=== PATIENT | female | born 1965 | race Caucasian/White ===

== ENCOUNTER → 2017-05-05 | Outpatient (CLI) | payer OTHER, MEDICARE ==
[~2017-05-05] MED LIST: 'PARAFON FORTE500 M1 PO; ATARAX25 MG PO; BENADRYL50 MG PO; BENTYL10 MG PO; CLARITIN10 MG PO; DOXYCYCLINE20 MG PO; DOXYCYCLINE50 M2 PO; EFFEXOR XR75 M2 PO; ERYC250 MG PO; ERYTHROMYCIN250 M2 PO; FIORICET 325 MG1 TAB PO; FLOMAX0.4 MG PO; FLONASE 0.05% 121 EA NAS; HYDROCODONE BIT1 T11 PO; LEVAQUIN250 MG PO; MACROBID100 M1 PO; MEDROL DOSEPAK4 MG PO; METICORTEN1 MG PO; MOTRIN800 MG PO; NEURONTIN600 MG PO; PAXIL10 MG PO; PAXIL20 M1 PO; PEPCID20 MG PO; PERCOCET 325 MG1 TA2 PO; POLYMYCIN B/TRI10 ML OP; PREDNISONE10 M1 PO; PREDNISONE10 MG PO; PREDNISONE20 MG PO; PREDNISONE50 MG PO; PROZAC40 MG PO; PYRIDIUM200 M1 PO; PYRIDIUM200 MG PO; Phenergan25 MG PO; ROBAXIN500 MG PO; VICODIN 5/500 505 MG PO; VICODIN 500 MG-1 TAB PO; XANAX0.5 MG PO; XANAX1 MG PO; ZITHROMAX Z PA250 MG PO; ZOFRAN ODT4 MG SL; ZYRTEC10 M2
== END | disposition home or self-care (01) ==
LOC: MAMMO 10:00
DX: Z12.31 Encounter for screening mammogram for malignant neoplasm of breast (principal)

== ENCOUNTER 2018-03-10 21:42 | Emergency (ER) | payer OTHER, MEDICARE ==
[~2018-03-10] VITALS: Ht 172.7 cm; Wt 58.1 kg
[2018-03-10] MEDS ORDERED: ZYRTEC10 MG PO (21:57)
== END 2018-03-10 22:18 | disposition home or self-care (01) ==
LOC: ED 21:42
DX: L23.7 Allergic contact dermatitis due to plants, except food (principal); Z88.0 Allergy status to penicillin; Z88.2 Allergy status to sulfonamides; Z88.1 Allergy status to other antibiotic agents

== ENCOUNTER 2018-09-21 17:32 | Emergency (ER) | payer OTHER, MEDICARE ==
[~2018-09-21] VITALS: Wt 61.2 kg
--- NOTE | ~2018-09-21 | EKG ---
[place], [place] ELECTROCARDIOGRAM REPORT NAME: KALEB GLEASNO UNIT #: [id number] ROOM: DOCTOR: EPIPHANY DRAFT REPORT BIRTHDATE: [birth year] [facility] Test Date: 2018-09-21 Test Time: 19:30:01 Pat Name: KALEB GLEASON Department: ER Room: 14 Gender: F Building Official: : [id number] Requested By: FRANCISCO MANN Order Number: [id number] Reading MD: Latyoa Canales MD Measurements Intervals [place] Rate: 75 P: 35 [place]: 134 QRS: 54 QRSD: 87 T: 46 QT: 410 QTc: 458 Interpretive Statements Sinus rhythm Normal ECG Baseline wander in lead(s) V5 Electronically Signed On 09-22-2018 3:23:47 PST by Latoya Canales MD CM:EKGRPT:ELECTROCARDIOGRAM REPORT [id number] FRANCISCO CANCINO DRAFT REPORT FRANCISCO SWARTZ
[~2018-09-21 17:32] MED LIST changes: +ZYRTEC10 MG PO
[2018-09-21 19:34] LABS: BASO # 0.1 10*3/uL (0.0-0.1); BASO % 0.4 % (0.0-1.0); EOS % 0.1 % (1.0-4.0); HEMATOCRIT 40.7 % (37.0-47.0); HEMOGLOBIN 13.2 g/dl (12.0-16.0); LYMPH # 3.1 10*3/uL (1.3-4.4); LYMPH % 23.4 % (27.0-41.0); MEAN CELL VOLUME 91.9 fl (81.0-99.0); MEAN CORPUSCULAR HGB 29.8 pg (27.0-31.0); MEAN CORPUSCULAR HGB CONC 32.4 g/dl (33.0-37.0); MEAN PLATELET VOLUME 9.4 fl (9.6-12.3); MONO # 0.8 10*3/uL (0.1-1.0); MONO % 5.9 % (3.0-9.0); NEUT # 9.3 10*3/uL (2.3-7.9); NEUT % 69.8 % (47.0-73.0); PLATELET COUNT AUTOMATED 288 10*3/uL (130-400); RED BLOOD COUNT 4.43 10*6/uL (4.10-5.10); RED CELL DISTRI WIDTH 13.2 % (0-14.5); WHITE BLOOD COUNT 13.4 10*3/uL (4.8-10.8)
[2018-09-21 19:51] LABS: ALBUMIN 4.1 gm/dl (3.1-4.5); ALKALINE PHOSPHATASE 55 U/L (45-117); BUN 14 mg/dl (7-24); CHLORIDE 103 mmol/L (98-107); CREATININE 0.75 mg/dL (0.55-1.02); POTASSIUM 3.3 mmol/L (3.5-5.1); SGOT/AST 21 IU/L (3-35); SGPT/ALT 32 U/L (12-78); SODIUM 138 mmol/L (136-145); TOTAL PROTEIN 6.8 gm/dL (6.4-8.2)
[2018-09-21 19:57] LABS: TROPONIN I < 0.015 ng/ml (<0.045)
[2018-09-21] MEDS ORDERED: CEPHALEXIN500 M1 PO (21:56)
== END 2018-09-21 21:33 | disposition home or self-care (01) ==
LOC: ED 17:32
PROVIDERS: Physician Assistant
DX: S42.291A Other displaced fracture of upper end of right humerus, initial encounter for closed fracture (principal); S01.311A Laceration without foreign body of right ear, initial encounter; Z88.0 Allergy status to penicillin; Z88.2 Allergy status to sulfonamides; Z88.1 Allergy status to other antibiotic agents; Z88.8 Allergy status to other drugs, medicaments and biological substances; Z79.2 Long term (current) use of antibiotics; Z79.899 Other long term (current) drug therapy; Z98.890 Other specified postprocedural states; W00.0XXA Fall on same level due to ice and snow, initial encounter; Y93.89 Activity, other specified; Y92.89 Other specified places as the place of occurrence of the external cause; Y99.8 Other external cause status

== ENCOUNTER 2019-05-01 15:39 | Emergency (ER) | payer OTHER, MEDICARE ==
[~2019-05-01] VITALS: Ht 170.1 cm; Wt 62.6 kg
[~2019-05-01 15:39] MED LIST changes: +CEPHALEXIN500 M1 PO
[2019-05-01 16:02] LABS: BASO # 0.1 10*3/uL (0.0-0.1); BASO % 0.5 % (0.0-1.0); HEMATOCRIT 45.1 % (37.0-47.0); HEMOGLOBIN 14.3 g/dl (12.0-16.0); LYMPH # 1.3 10*3/uL (1.3-4.4); LYMPH % 12.5 % (27.0-41.0); MEAN CELL VOLUME 91.3 fl (81.0-99.0); MEAN CORPUSCULAR HGB 28.9 pg (27.0-31.0); MEAN CORPUSCULAR HGB CONC 31.7 g/dl (33.0-37.0); MEAN PLATELET VOLUME 9.4 fl (9.6-12.3); MONO # 0.4 10*3/uL (0.1-1.0); MONO % 4.1 % (3.0-9.0); NEUT # 8.7 10*3/uL (2.3-7.9); NEUT % 82.6 % (47.0-73.0); PLATELET COUNT AUTOMATED 296 10*3/uL (130-400); RED BLOOD COUNT 4.94 10*6/uL (4.10-5.10); WHITE BLOOD COUNT 10.6 10*3/uL (4.8-10.8)
[2019-05-01 16:09] LABS: BILIRUBIN NEGATIVE (NEGATIVE); BLOOD 3+ (NEGATIVE); CLARITY CLEAR (CLEAR); COLOR YELLOW (YELLOW); GLUCOSE NEGATIVE (NEGATIVE); KETONE 2+ (NEGATIVE); LEUKO ESTERASE NEGATIVE (NEGATIVE); NITRITE NEGATIVE (NEGATIVE); SPECIFIC GRAVITY >= 1.030 (1.005-1.030); UROBILINOGEN 0.2 E.U./dl (0.2-1.0)
[2019-05-01 16:14] LABS: BACTERIA 3+; EPITHELIAL CELLS 16-20; RBC 51-100 rbc/hpf (0-2)
[2019-05-01 16:17] LABS: ALBUMIN 4.4 gm/dl (3.1-4.5); ALKALINE PHOSPHATASE 134 U/L (45-117); BUN 18 mg/dl (7-24); CHLORIDE 104 mmol/L (98-107); CREATININE 0.88 mg/dL (0.55-1.02); LIPASE 73 U/L (73-393); POTASSIUM 3.9 mmol/L (3.5-5.1); SGOT/AST 25 IU/L (3-35); SGPT/ALT 31 U/L (12-78); SODIUM 141 mmol/L (136-145); TOTAL PROTEIN 7.9 gm/dL (6.4-8.2)
[2019-05-01] MEDS ORDERED: NORCO 5-325 TA1 EACH PO ×2 (19:07→19:10)
[2019-05-01] MEDS ORDERED: FLOMAX0.4 MG PO (19:10)
[2019-05-01] MEDS ORDERED: PHENERGAN25 MG R (19:10)
== END 2019-05-01 19:33 | disposition home or self-care (01) ==
LOC: ED 15:39
PROVIDERS: Nurse Practitioner Family
DX: N13.2 Hydronephrosis with renal and ureteral calculous obstruction (principal); R11.2 Nausea with vomiting, unspecified; R31.9 Hematuria, unspecified; Z88.0 Allergy status to penicillin; Z88.2 Allergy status to sulfonamides; Z88.6 Allergy status to analgesic agent; Z88.1 Allergy status to other antibiotic agents; Z79.899 Other long term (current) drug therapy; Z87.442 Personal history of urinary calculi

== ENCOUNTER 2022-06-09 11:13 | Emergency (ER) | payer OTHER, MEDICARE ==
[~2022-06-09] VITALS: Wt 72.6 kg
[~2022-06-09 11:13] MED LIST changes: +NORCO 5-325 TA1 EACH PO; +PHENERGAN25 MG R
[2022-06-09] MEDS ORDERED: PHENTERMINE H37.5 M1 PO (12:46)
[2022-06-09] MEDS ORDERED: TRAZODONE50 MG PO (12:46)
[2022-06-09] MEDS ORDERED: PROPRANOLOL HCL20 MG PO (12:46)
[2022-06-09] MEDS ORDERED: IBU800 M2 PO (12:47)
[2022-06-09] MEDS ORDERED: MONTELUKAST SOD10 MG PO (12:47)
[2022-06-09] MEDS ORDERED: DOXYCYCLINE HYC50 MG PO (12:47)
[2022-06-09] MEDS ORDERED: DICYCLOMINE HCL10 MG PO (12:48)
[2022-06-09] MEDS ORDERED: ATORVASTATIN CA10 M1 PO (12:48)
== END 2022-06-09 14:27 | disposition home or self-care (01) ==
LOC: ED 11:13
DX: S60.211A Contusion of right wrist, initial encounter (principal); S60.221A Contusion of right hand, initial encounter; Z88.0 Allergy status to penicillin; Z88.2 Allergy status to sulfonamides; Z88.1 Allergy status to other antibiotic agents; Z88.8 Allergy status to other drugs, medicaments and biological substances; Z79.2 Long term (current) use of antibiotics; Z79.899 Other long term (current) drug therapy; Z94.84 Stem cells transplant status; Z98.890 Other specified postprocedural states; W01.0XXA Fall on same level from slipping, tripping and stumbling without subsequent striking against object, initial encounter; Y93.89 Activity, other specified; Y92.89 Other specified places as the place of occurrence of the external cause; Y99.8 Other external cause status

== ENCOUNTER → 2022-08-13 | Outpatient (CLI) | payer OTHER, MEDICARE ==
[~2022-08-13] MED LIST changes: +ATORVASTATIN CA10 M1 PO; +DICYCLOMINE HCL10 MG PO; +DOXYCYCLINE HYC50 MG PO; +IBU800 M2 PO; +MONTELUKAST SOD10 MG PO; +PHENTERMINE H37.5 M1 PO; +PROPRANOLOL HCL20 MG PO; +TRAZODONE50 MG PO
== END | disposition home or self-care (01) ==
LOC: MAMMO 02:14
PROVIDERS: ATTEND Nurse Practitioner Family
DX: Z12.31 Encounter for screening mammogram for malignant neoplasm of breast (principal)

== ENCOUNTER 2023-01-30 11:27 | Emergency (ER) | payer OTHER, MEDICARE ==
[~2023-01-30] VITALS: Ht 170.1 cm; Wt 74.8 kg
== END 2023-01-30 13:42 ==
LOC: ED 11:27
DX: S66.912A Strain of unspecified muscle, fascia and tendon at wrist and hand level, left hand, initial encounter (principal); F41.9 Anxiety disorder, unspecified; F32.A Depression, unspecified; Z90.711 Acquired absence of uterus with remaining cervical stump; Z88.0 Allergy status to penicillin; Z88.2 Allergy status to sulfonamides; Z88.6 Allergy status to analgesic agent; Z88.8 Allergy status to other drugs, medicaments and biological substances; Z98.890 Other specified postprocedural states; Z90.12 Acquired absence of left breast and nipple; W19.XXXA Unspecified fall, initial encounter; Y93.89 Activity, other specified; Y92.002 Bathroom of unspecified non-institutional (private) residence as the place of occurrence of the external cause; Y99.8 Other external cause status

== ENCOUNTER → 2023-02-04 | Day surgery (SDC) | payer OTHER, MEDICARE ==
[2023-02-02 10:31] LABS: BUN 11 mg/dl (9-23); CHLORIDE 104 mmol/L (98-107); POTASSIUM 3.5 mmol/L (3.4-5.1)
[2023-02-02 14:24] VITALS: BP 159/98
[~2023-02-04] VITALS: Ht 170.1 cm; Wt 74.8 kg
[~2023-02-04] MED LIST changes: +HYDROCODONE-AC1 EAC1 PO; +LINZESS145 MC1 PO
[2023-02-04 07:56] VITALS: BP 155/87
[2023-02-04 10:22] VITALS: BP 130/71
[2023-02-04 10:37] VITALS: BP 132/70
[2023-02-04 10:52] VITALS: BP 157/98
[2023-02-04 11:07] VITALS: BP 145/98
[2023-02-04 11:21] VITALS: BP 152/92
== END | disposition home or self-care (01) ==
LOC: SDC 02-02 14:00
PROVIDERS: ATTEND Orthopaedic Surgery
DX: S52.532A Colles' fracture of left radius, initial encounter for closed fracture (principal); M81.0 Age-related osteoporosis without current pathological fracture; E78.00 Pure hypercholesterolemia, unspecified; F32.A Depression, unspecified; Z90.710 Acquired absence of both cervix and uterus; Z98.890 Other specified postprocedural states; G43.909 Migraine, unspecified, not intractable, without status migrainosus; W19.XXXA Unspecified fall, initial encounter; Y93.89 Activity, other specified; Y92.89 Other specified places as the place of occurrence of the external cause; Y99.8 Other external cause status

== ENCOUNTER → 2023-02-19 | Outpatient (CLI) | payer OTHER, MEDICARE | END | disposition home or self-care (01) | LOC: ORTHO 01:06 | PROVIDERS: ATTEND Orthopaedic Surgery | DX: S52.532D Colles' fracture of left radius, subsequent encounter for closed fracture with routine healing (principal); X58.XXXD Exposure to other specified factors, subsequent encounter ==

== ENCOUNTER → 2023-03-19 | Outpatient (CLI) | payer OTHER, MEDICARE | END | disposition home or self-care (01) | LOC: ORTHO 01:36 | PROVIDERS: ATTEND Orthopaedic Surgery | DX: S52.532D Colles' fracture of left radius, subsequent encounter for closed fracture with routine healing (principal); X58.XXXD Exposure to other specified factors, subsequent encounter ==

== ENCOUNTER → 2023-07-23 | Outpatient (CLI) | payer OTHER, MEDICARE | END | disposition home or self-care (01) | LOC: RAD 07-22 00:09 | PROVIDERS: ATTEND Nurse Practitioner Family | DX: M19.032 Primary osteoarthritis, left wrist (principal); M79.89 Other specified soft tissue disorders ==

== ENCOUNTER → 2025-06-06 | Outpatient (CLI) | payer OTHER, MEDICARE | END | disposition home or self-care (01) | LOC: ORTHO 02:29 | PROVIDERS: ATTEND Orthopaedic Surgery | DX: M77.31 Calcaneal spur, right foot (principal); M25.571 Pain in right ankle and joints of right foot; M79.89 Other specified soft tissue disorders ==